=== PATIENT | female | born 1995 | race Two or more races ===

== ENCOUNTER 2016-09-04 13:37 | Emergency (ER) | payer OTHER ==
[~2016-09-04] VITALS: Ht 167.6 cm; Wt 72.6 kg
[2016-09-04] MEDS ORDERED: ALBUTEROL2.5 MG/3 M INH (14:12)
[2016-09-04] MEDS ORDERED: Bacitracin Oint UD TOPIC ONE (14:15)
[2016-09-04] MEDS ORDERED: TdaP Vaccine 0.5ml Syr IM ONE (14:15)
[2016-09-04] MEDS ORDERED: AUGMENTIN 500-1 EACH ORAL (15:02)
[2016-09-04] MEDS ORDERED: IBUPROFEN600 MG ORAL (15:02)
[2016-09-04 15:14] VITALS: BP 110/60
--- NOTE | 2016-09-04 16:02 | Emergency Room Report ---
History of Present Illness General Chief Complaint: Animal Bite Source: Patient Present Illness HPI The patient is a 20-year-old female presenting with an injury to the left hand after being bitten by a dog. 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 The patient noticed pain and slight bleeding. Pain is described as a 3/10 dull ache. No radiating pain. Patient denies numbness or tingling. The patient denies any other symptoms. The patient states her last tetanus shot unknown Allergies: Uncoded Allergies: CATS (Allergy, Unknown, 09/04/16) Patient History Past Medical History: see triage record Pertinent Family History: none Last Menstrual Period: 08/10/16 Now: No Reviewed Nursing Documentation: PMH: Agreed, PSxH: Agreed Nursing Documentation-PMH Hx Asthma: Yes Review of Systems All Other Systems: negative except mentioned in HPI Physical Exam Vital Signs Date Time Temp Pulse Resp B/P Pulse Ox O2 Delivery O2 Flow Rate FiO2 09/04/16 14:07 98.2 67 16 103/65 98 Room Air Sp02 EP Interpretation: reviewed, normal General Appearance: no apparent distress, alert, GCS 15, non-toxic Head: normocephalic, atraumatic Eyes: bilateral eye PERRL, bilateral eye normal inspection ENT: hearing grossly normal, normal pharynx, no angioedema, normal voice Musculoskeletal: digits/nails normal, normal range of motion, tender - TTP over wounds of L hand dorsum Neurologic: alert, oriented x3, responsive, motor strength/tone normal, sensory intact, speech normal Psychiatric: judgement/insight normal, memory normal, mood/affect normal, no suicidal/homicidal ideation Skin: normal color, no rash, warm/dry, well hydrated, laceration - two punctate wounds on dorsum of hand Lymphatic: no adenopathy Medical Decision Making PA Attestation Dr. Cazares is my supervising physician. Patient management was discussed with my supervising physician Diagnostic Impression: Primary Impression: Bite by animal ER Course The patient is a 20-year-old female presenting with an injury to the left hand after being bitten by a dog. Ddx considered include but not limited to fracture, tendon/ligament injury, wound infection, avulsion, nerve damage PE: Vitals WNL. NAD Left hand: There are two less than 1 cm in diameter punctate wounds of the left hand dorsum. No bleeding. Full active range of motion of wrist and fingers. Sensation intact to light touch. No edema. The wounds are copiously irrigated with pressure normal saline and Betadine. Bacitracin is applied and sterile dressing is placed. Tetanus shot given Patient will followup with primary care physician in 2-3 days for wound check otherwise patient will return. ER precautions are given The patient will be placed on Augmentin Last Vital Signs Date Time Temp Pulse Resp B/P Pulse Ox O2 Delivery O2 Flow Rate FiO2 09/04/16 14:07 98.2 67 16 103/65 98 Room Air Status: improved Disposition: HOME, SELF-CARE Condition: Improved Scripts Ibuprofen* (MOTRIN*) 600 Mg Tablet 600 MG ORAL Q8H Y for For Pain, #30 TAB 0 Refills Prov: SONDRA QUILES 09/04/16 Amoxicillin/Potassium Clav 500-125 Tablet* (AUGMENTIN 500-125 TABLET*) 1 Each Tablet 1 TAB ORAL THREE TIMES A DAY, #15 TAB Prov: SONDRA QUILES 09/04/16 Referrals: NON PHYSICIAN (PCP) Patient Instructions: Animal Bite Additional Instructions: I discussed my findings with the patient. All questions and concerns have been answered. Treatment and medication compliance have been addressed. I advised the patient that they need to follow up with doctor in 2-3 days. Return to ED if symptoms worsen, new symptoms arise, or if needed for any reason. Patient verbalized understanding of discharge instructions. Return to ED if you are unable to see doctor within 3 days. SONDRA QUILES Sep 04, 2016 16:02
== END 2016-09-04 15:14 | disposition home or self-care (01) ==
LOC: EMR 15:13
DX: S61.452A Open bite of left hand, initial encounter (principal); Z23 Encounter for immunization; J45.909 Unspecified asthma, uncomplicated; Z91.048 Other nonmedicinal substance allergy status; W54.0XXA Bitten by dog, initial encounter; Y93.K3 Activity, grooming and shearing an animal; Y92.9 Unspecified place or not applicable; Y99.0 Civilian activity done for income or pay
CPT/HCPCS: 90471; 90715; 99284

== ENCOUNTER 2016-09-07 10:15 | Emergency (ER) | payer OTHER ==
[~2016-09-07] VITALS: Ht 167.6 cm; Wt 72.6 kg
[~2016-09-07 10:15] MED LIST: ALBUTEROL2.5 MG/3 M INH; AUGMENTIN 500-1 EACH ORAL; IBUPROFEN600 MG ORAL
[2016-09-07 10:36] VITALS: BP 114/77
--- NOTE | 2016-09-07 10:57 | Emergency Room Report ---
History of Present Illness General Chief Complaint: General Complaint Source: Patient Present Illness HPI Patient presents for wound check. She was bit by a dog approximately 3 days ago. In seen on Monday for a check. Started on antibiotics as well as tetanus was updated and wound was irrigated per records. Describe some pain and stiffness in the hand but no inability to move the wrist or fingers. No streaking, no drainage. She's been taking anabiotic says requested. Here for wound followup. Allergies: Uncoded Allergies: CATS (Allergy, Unknown, 09/04/16) Patient History Past Medical History: see triage record, old chart reviewed Social History: Denies: alcohol use, drug use, smoking Last Menstrual Period: 08/10/2016 Now: No : 0 Para: 0 Immunizations: UTD Reviewed Nursing Documentation: PMH: Agreed Nursing Documentation-PMH Hx Asthma: Yes Review of Systems Musculoskeletal: Reports: muscle stiffness All Other Systems: negative except mentioned in HPI Physical Exam Vital Signs Date Time Temp Pulse Resp B/P Pulse Ox O2 Delivery O2 Flow Rate FiO2 09/07/16 10:30 98.6 81 16 114/77 99 Room Air Sp02 EP Interpretation: reviewed, normal General Appearance: normal inspection, well appearing, no apparent distress, alert Head: atraumatic Eyes: bilateral eye normal inspection ENT: normal ENT inspection, hearing grossly normal, normal voice Neck: normal inspection, full range of motion, supple, no bony tend Respiratory: normal inspection, lungs clear, normal breath sounds, no respiratory distress, no retraction, no wheezing Cardiovascular #1: regular rate, rhythm, no edema Gastrointestinal: normal inspection, normal bowel sounds, non tender, soft, no guarding, no hernia Genitourinary: no CVA tenderness Musculoskeletal: normal inspection, back normal, normal range of motion, other - full ROM in the left wrist and hand, and all fingers. Neurologic: normal inspection, alert, responsive, speech normal Psychiatric: normal inspection, judgement/insight normal, mood/affect normal Skin: no rash, other - 2 puncture wounds on the dorsum of the left hand, tender , no surrounding swelling or drainage, no fluctuence. Medical Decision Making Diagnostic Impression: Primary Impression: Bite by animal Additional Impression: wound check ER Course Appearing man with healing wound, dog bite, compliant with medications. Plan on discharge to home, followup with employee health, continue antibiotics and return for cautions described. Last Vital Signs Date Time Temp Pulse Resp B/P Pulse Ox O2 Delivery O2 Flow Rate FiO2 09/07/16 10:36 98.6 81 16 114/77 99 Room Air Disposition: HOME, SELF-CARE Condition: Stable Referrals: NON PHYSICIAN (PCP) Departure Forms: Return to Work Return to Work in (Days): 2 Return to Work Date: Sep 08, 2016 Other Restrictions: keep hands clean Patient Instructions: Animal Bite, [id number], Delayed Wound Closure Additional Instructions: Continue taking medications as required, antibiotics and pain medications that you have been prescribed. Buck Mcdermott MD Sep 07, 2016 10:57
[2016-09-07 11:07] VITALS: BP 114/77
== END 2016-09-07 11:07 | disposition home or self-care (01) ==
LOC: EMR 10:50
DX: M25.539 Pain in unspecified wrist (principal); M25.639 Stiffness of unspecified wrist, not elsewhere classified; S61.559A Open bite of unspecified wrist, initial encounter; Y92.89 Other specified places as the place of occurrence of the external cause
CPT/HCPCS: 99281

== ENCOUNTER → 2017-03-04 | Emergency (ER) | payer OTHER ==
[~2017-03-04] VITALS: Ht 160 cm; Wt 72.6 kg
[~2017-03-04] MED LIST changes: +AUGMENTIN 875-1 EAC1 ORAL; +Augmentin 875mg Tab ORAL ONE; +Bacitracin Oint UD TOPIC ONE
[2017-03-04 17:52] VITALS: BP 124/75
[2017-03-04 18:21] VITALS: BP 124/75
--- NOTE | 2017-03-04 21:20 | Emergency Room Report ---
History of Present Illness General Chief Complaint: Animal Bite Present Illness HPI The patient is a 20-year-old female presenting with dog bite. She states that she was working with a dog at work when it bit her arm and lip. This occurred one hour prior to arrival. She states the dog has been completely vaccinated. Pain is a 1/10 dull ache to the right wrist and lip. Does not radiate it worse with touch. She states she is up-to-date with tetanus shot. She denies any other symptoms including nausea, vomiting, fever, chills, numbness or tingling Allergies: Uncoded Allergies: CATS (Allergy, Unknown, 09/04/16) Patient History Past Medical History: see triage record Pertinent Family History: none Reviewed Nursing Documentation: PMH: Agreed, PSxH: Agreed Nursing Documentation-PMH Hx Asthma: Yes Review of Systems All Other Systems: negative except mentioned in HPI Physical Exam Vital Signs Date Time Temp Pulse Resp B/P Pulse Ox O2 Delivery O2 Flow Rate FiO2 03/04/17 17:37 98.4 63 18 124/75 98 Room Air Sp02 EP Interpretation: reviewed, normal General Appearance: no apparent distress, alert, GCS 15, non-toxic Head: normocephalic, atraumatic Eyes: bilateral eye PERRL, bilateral eye normal inspection ENT: normal voice, other - abrasion to mid lower lip Neck: full range of motion, supple/symm/no masses Musculoskeletal: normal range of motion, tender - over laceration of the R wrist Neurologic: alert, oriented x3, responsive, motor strength/tone normal, sensory intact, speech normal Psychiatric: judgement/insight normal, memory normal, mood/affect normal, no suicidal/homicidal ideation Skin: laceration - 1cm superficial avulsion of the R medial wrist Medical Decision Making PA Attestation Dr. Cazares is my supervising physician. Patient management was discussed with my supervising physician Diagnostic Impression: Primary Impression: Dog bite of face Qualified Codes: S01.85XA - Open bite of other part of head, initial encounter ; W54.0XXA - Bitten by dog, initial encounter Additional Impression: Dog bite of extremity ER Course The patient is a 20-year-old female presenting with dog bite Differential diagnoses considered but not limited to: Avulsion, laceration, wound infection Physical exam consistent with uncomplicated bite wound. Areas are copiously irrigated with NS and betadine. Bacitracin and sterile dressing applied. She is given augmentin in the ED and will be DC'ed with the same. ER precautions given Last Vital Signs Date Time Temp Pulse Resp B/P Pulse Ox O2 Delivery O2 Flow Rate FiO2 03/04/17 18:21 98.4 63 18 124/75 98 Room Air Status: improved Disposition: HOME, SELF-CARE Condition: Improved Scripts Ibuprofen* (MOTRIN*) 600 Mg Tablet 600 MG ORAL Q8H Y for For Pain, #30 TAB 0 Refills Prov: SONDRA QUILES 03/04/17 Amoxicillin/Potassium Clav 875-125* (AUGMENTIN 875-125 TABLET*) 1 Each Tablet 1 TAB ORAL TWICE A DAY, #10 TAB Prov: SONDRA QUILES 03/04/17 Referrals: NON PHYSICIAN (PCP) Patient Instructions: Animal Bite Additional Instructions: I discussed my findings with the patient. All questions and concerns have been answered. Treatment and medication compliance have been addressed. I advised the patient that they need to follow up with PMD in 3-5 days. Return to ED if symptoms worsen, new symptoms arise, or if needed for any reason. Patient verbalized understanding of discharge instructions. SONDRA QUILES Mar 04, 2017 21:20
== END | disposition home or self-care (01) ==
LOC: EMR 17:45
DX: S01.85XA Open bite of other part of head, initial encounter (principal); S61.551A Open bite of right wrist, initial encounter; W54.0XXA Bitten by dog, initial encounter; Y93.9 Activity, unspecified; Y99.0 Civilian activity done for income or pay; Z91.048 Other nonmedicinal substance allergy status
CPT/HCPCS: 99284